=== PATIENT | male | born 1945 | race Caucasian/White ===

== ENCOUNTER 2020-12-21 05:35 | Inpatient (IN) | payer MEDICARE ==
[~2020-12-21 05:35] MED LIST: COLESTID1 GM PO; HYDROCODON-ACE1 EAC4 PO; MIRALAX17 GM PO; MIRAPEX0.25 MG PO; PROTONIX 40MG T40 MG PO; SINEMET 25-2501 EACH PO; SYNTHROID75 MCG PO; VITAMIN B12; VITAMIN B12 SC; VITAMIN D31 ML PO; ZINC30 MG PO
[2020-12-21 09:31] LABS: BILIRUBIN NEGATIVE (NEGATIVE); BLOOD TRACE-INTACT Ery/uL (NEGATIVE); CLARITY CLEAR (CLEAR); COLOR YELLOW (YELLOW); GLUCOSE (U) NORMAL (NORMAL); LEUKOCYTES NEGATIVE Leu/uL (NEGATIVE); NITRITE NEGATIVE (NEGATIVE); PROTEIN NEGATIVE (NEGATIVE); SPECIFIC GRAVITY >=1.030 (1.001-1.030); UROBILINOGEN 0.2 mg/dL (0.2-1.0)
[2020-12-21 09:44] LABS: BACTERIA TRACE
[2020-12-21 09:45] LABS: SQUAMOUS EPITHELIAL CELLS RARE
[2020-12-21] MEDS ORDERED: PERCOCET 7.5/321 TAB PO (10:25)
[2020-12-22 06:57] LABS: EOSINOPHIL 6.8 % (0-7); HCT 27.1 % (42.0-52.0); LYMPHOCYTE 10.8 % (15-48); MCH 33.5 pg (25.0-31.0); MCHC 33.2 g/dL (32.0-36.0); MCV 100.7 fL (78.0-100.0); MONOCYTE 7.4 % (0-12); MPV 10.9 fL (6.0-9.5); NEUTROPHIL 73.6 % (41-80); NRBC 0; PLT 128 K/uL (150-400); RBC 2.69 M/uL (4.70-6.00); RDW 13.2 % (11.5-14.0); WBC 8.2 K/uL (4.0-10.5)
[2020-12-22 07:05] LABS: BUN/CREAT RATIO (CALC) 23.6 RATIO; CREATININE 1.06 mg/dL (0.67-1.17); POTASSIUM 3.9 mmol/L (3.5-5.1)
[2020-12-22] MEDS ORDERED: XARELTO10 MG PO ×3 (12:42→13:00)
[2020-12-22] MEDS ORDERED: ULTRA-LIGHT RO1 EACH XX (12:42)
[2020-12-22] MEDS ORDERED: FEOSOL325 MG PO (12:42)
--- NOTE | 2020-12-22 13:07 | NUR ---
PT. TO D/C HOME WITH SPOUSE. PT REQUESTED [facility] FOR PT/OT AND NURSING ASSESSMENT. [facility] DELIVERED A ROLLING WALKER. PT. MARIANNE COPAY IS $14.00.
== END 2020-12-22 15:03 | disposition home health service (06) | DRG 470 ==
LOC: FAS 05:35 → FMS 10:00
PROVIDERS: ADMIT Legal Medicine
PROC: 0SRD0J9 Replacement of Left Knee Joint with Synthetic Substitute, Cemented, Open Approach (ICD-10-PCS; principal; 2020-12-21 07:00)
DX: M17.12 Unilateral primary osteoarthritis, left knee (principal); K21.9 Gastro-esophageal reflux disease without esophagitis; E03.9 Hypothyroidism, unspecified; G20 Parkinson's disease; Z88.1 Allergy status to other antibiotic agents; Z85.828 Personal history of other malignant neoplasm of skin; Z85.118 Personal history of other malignant neoplasm of bronchus and lung; I25.2 Old myocardial infarction
CPT/HCPCS: 36415; 73560; 80048; 81001; 85025; 86850; 86900; 86901; 94010; 94762; 97110; 97116; 97162; 97166; 97530-GP; 97535; C1713; C1776; J0171; J1885; J2250; J2270; J2274; J2704; J2795; J3010; J7120; U0002

== ENCOUNTER 2022-05-31 16:20 | Emergency (ER) | payer MEDICARE ==
[~2022-05-31 16:20] MED LIST changes: +FEOSOL325 MG PO; +PERCOCET 7.5/321 TAB PO; +ULTRA-LIGHT RO1 EACH XX; +XARELTO10 MG PO
[2022-05-31 17:17] LABS: BILIRUBIN NEGATIVE (NEGATIVE); BLOOD 2+ Ery/uL (NEGATIVE); CLARITY CLEAR (CLEAR); COLOR YELLOW (YELLOW); GLUCOSE (U) NORMAL (NORMAL); LEUKOCYTES NEGATIVE Leu/uL (NEGATIVE); NITRITE NEGATIVE (NEGATIVE); PROTEIN NEGATIVE (NEGATIVE); SPECIFIC GRAVITY >=1.030 (1.001-1.030); UROBILINOGEN 0.2 mg/dL (0.2-1.0); pH 5.5 (5.0-9.0)
[2022-05-31] MEDS ORDERED: FLOMAX0.4 MG PO (17:44)
== END 2022-05-31 18:02 | disposition home or self-care (01) ==
LOC: FER 16:20
PROVIDERS: Nurse Practitioner Family
DX: R33.9 Retention of urine, unspecified (principal); Z88.0 Allergy status to penicillin
CPT/HCPCS: 81001

== ENCOUNTER 2022-06-03 16:06 | Emergency (ER) | payer MEDICARE ==
[~2022-06-03 16:06] MED LIST changes: +FLOMAX0.4 MG PO
[2022-06-03 16:28] LABS: BILIRUBIN 3+ mg/dL (NEGATIVE); BLOOD 3+ Ery/uL (NEGATIVE); CLARITY CLEAR (CLEAR); COLOR YELLOW (YELLOW); GLUCOSE (U) TRACE mg/dL (NORMAL); LEUKOCYTES 1+ Leu/uL (NEGATIVE); NITRITE POSITIVE (NEGATIVE); PROTEIN 3+ mg/dL (NEGATIVE); SPECIFIC GRAVITY >=1.030 (1.001-1.030); UROBILINOGEN >=8.0 mg/dL (0.2-1.0); pH 6.5 (5.0-9.0)
[2022-06-03 16:45] LABS: BACTERIA 1+; URINARY RBC TNTC
[2022-06-03 17:17] LABS: BASOPHIL 0.8 % (0-2); HCT 30.3 % (42.0-52.0); HGB 10.4 g/dl (13.2-18.0); LYMPHOCYTE 14.5 % (15-48); MCH 35.1 pg (25.0-31.0); MCHC 34.3 g/dL (32.0-36.0); MCV 102.4 fL (78.0-100.0); MONOCYTE 5.7 % (0-12); MPV 9.6 fL (6.0-9.5); NEUTROPHIL 76.7 % (41-80); NRBC 0; PLT 197 K/uL (150-400); RBC 2.96 M/uL (4.70-6.00); RDW 12.8 % (11.5-14.0)
[2022-06-03 17:52] LABS: BUN/CREAT RATIO (CALC) 20.9 RATIO; CREATININE 1.15 mg/dL (0.67-1.17); POTASSIUM 3.6 mmol/L (3.5-5.1)
[2022-06-03 18:44] LABS: LACTIC ACID 0.7 mmol/L (0.4-1.9)
[2022-06-03] MEDS ORDERED: CEPHALEXIN500 MG PO (19:11)
== END 2022-06-03 20:08 | disposition home or self-care (01) ==
LOC: FER 16:06
PROVIDERS: Emergency Medicine; Nurse Practitioner Family
DX: N39.0 Urinary tract infection, site not specified (principal); Z88.0 Allergy status to penicillin
CPT/HCPCS: 36415; 80048; 81001; 83605; 85025; 87088; J0696; J7030

== ENCOUNTER 2022-06-14 11:30 | Emergency (ER) | payer MEDICARE ==
[~2022-06-14 11:30] MED LIST changes: +CEPHALEXIN500 MG PO
[2022-06-14 12:56] LABS: BASOPHIL 0.9 % (0-2); EOSINOPHIL 1.4 % (0-7); HCT 32.3 % (42.0-52.0); HGB 10.9 g/dl (13.2-18.0); LYMPHOCYTE 11.8 % (15-48); MCH 35.3 pg (25.0-31.0); MCHC 33.7 g/dL (32.0-36.0); MCV 104.5 fL (78.0-100.0); MONOCYTE 5.3 % (0-12); MPV 9.5 fL (6.0-9.5); NEUTROPHIL 80.3 % (41-80); NRBC 0; PLT 198 K/uL (150-400); RBC 3.09 M/uL (4.70-6.00); RDW 13.4 % (11.5-14.0)
[2022-06-14 13:11] LABS: BUN/CREAT RATIO (CALC) 18.3 RATIO; CREATININE 0.93 mg/dL (0.67-1.17)
[2022-06-14 14:18] LABS: BILIRUBIN NEGATIVE (NEGATIVE); BLOOD 3+ Ery/uL (NEGATIVE); CLARITY HAZY (CLEAR); COLOR YELLOW (YELLOW); GLUCOSE (U) NORMAL (NORMAL); LEUKOCYTES 1+ Leu/uL (NEGATIVE); NITRITE NEGATIVE (NEGATIVE); PROTEIN 1+ mg/dL (NEGATIVE); UROBILINOGEN 0.2 mg/dL (0.2-1.0); pH 6.5 (5.0-9.0)
[2022-06-14 14:55] LABS: BACTERIA TRACE; URINARY RBC TNTC
== END 2022-06-14 15:02 | disposition home or self-care (01) ==
LOC: FER 11:30
PROVIDERS: Internal Medicine
DX: R33.9 Retention of urine, unspecified (principal); G20 Parkinson's disease; Z88.0 Allergy status to penicillin
CPT/HCPCS: 36415; 80048; 81001; 85025; 87088; 99283